=== PATIENT | male | born 1985 | race Caucasian/White ===

== ENCOUNTER 2017-03-09 16:30 | Emergency (ER) | payer MEDICAID ==
[~2017-03-09] VITALS: Ht 182.9 cm; Wt 81.6 kg
[~2017-03-09 16:30] MED LIST: NAPROSYN 500MG500 MG PO; NOMEDS *; ULTRACET 325 MG1 TAB PO
[2017-03-09] MEDS ORDERED: BACTRIM DS 8001 TA1 PO (17:03)
[2017-03-09] MEDS ORDERED: TYLENOL WITH CO1 TA1 PO (17:04)
--- NOTE | 2017-03-09 17:04 | Emergency Room Report ---
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 N Clinical Suspician of Infection? N Mental Status: 1 - Regular (Normal Baseline) Sepsis Risk:Low Sepsis Risk Have you (or family members/close friends) recently traveled outside the [place]? N If Yes, where/when: Have you had exposure to infectious disease within the past month? TB? Other? Specify: Comment The patient has a boil on the LEFT side of his neck for a couple of days. He had a lump there before the boil developed. He has a history of boils in the past on his tailbone that have had to be lanced. No fever. He says it has given him a headache. ALLERGIES Coded Allergies: tramadol (Mild, 03/09/17) Uncoded Allergies: PCN (Mild, 03/09/17) Home Medications Reported Medications No Home Medications (NO HOME MEDICATIONS) 1 X * ONCE History Medical History General Angina: No [place]: No Hypertension? No Hyperlipidemia? No COPD? No Asthma? No CVA? No Seizures? No Diabetes? No GB Disease: No MRSA? No TB? No Cancer? No Immunization Hx Ped.Immunizations UTD Yes DT/Tetanus 1-4 YRS Surgical Hx Previous Surgery?N Social History Smoking Hx Smoker: Never Smoker Tobacco: Yes Type Cigarettes Are you/the child exposed to second-hand smoke: Yes Alcohol Alcohol: No Review of Systems All Other Systems Reviewed and Negative Constitutional denies fever Skin see HPI Psychiatric/Neurological headache Physical Exam Vital Signs Vital Signs Date Time Temp Pulse Resp B/P Pulse O2 O2 Flow FiO2 Ox Delivery Rate 03/09 1758 98.3 88 18 146/72 98 03/09 1643 98.3 88 18 146/72 98 General Appearance no apparent distress Neck 3 cm diameter fluctuant abscess LEFT lateral neck with mild overlying cellulitis. Respiratory Status No: respiratory distress. Cardiovascular regular rate/rhythm Neurologic alert, no motor/sensory deficits Medical Decision Making LABS/Meds/Orders Pt receiving controlled substance in ED? No Results/Orders Current Medication Orders Sig/Xin Start time Last Medication Dose Route Stop Time Status Admin Ibuprofen 0 .STK-MED ONE 03/09 1752 DC PO Ibuprofen 800 MG ONCE ONE 03/09 1745 DC 03/09 PO 03/09 1746 1758 Lidocaine HCl 0 .STK-MED ONE 03/09 1639 DC .ROUTE Lidocaine HCl 0 .STK-MED ONE 03/09 1639 DC .ROUTE Orders Procedure Date/time Status CULTURE, WOUND 03/09 1700 Active Procedures Incision and Drainage Progress Incision/Drainage Performed by: JAH KIM Consent: Verbal consent obtained. Risks and benefits: risks, benefits and alternatives were discussed Consent given by: patient Patient identity confirmed: verbally with patient Type: abscess Location: * Anesthesia: local infiltration Local anesthetic: lidocaine 1% Patient sedated: no Scalpel size: 11 Incision type: single straight Complexity: simple Drainage: purulent and sebum Drainage amount: moderate Wound treatment: probed for loculationsl. wound left open Packin/4 inch Culture: yes Patient tolerance: Patient tolerated the procedure well with no immediate complications Departure Departure Disposition DC Home or Self Care(routine) Clinical Impression Primary Impression: Infected sebaceous cyst Condition STABLE Patient Instructions DI for Incision and Drainage of a Skin Abscess Additional Instructions Additional instructions for ABSCESS: Day one and two: Remove the bandage and shower the area, leaving the packing in place. Gently blot dry. Apply a bandage. Day three: Follow-up with primary care physician, clinic, or Urgent Treatment Center for packing removal and culture results. Return to the emergency department if increasing pain, swelling, redness, redstreaks or fever greater than 101 degrees. Prescriptions Current Visit Scripts SULFAMETHOXAZOLE W/TRIMETHOPRI (Bactrim Ds Tab) 1 TAB PO BID #20 TAB ACETAMINOPHEN WITH CODEINE (Tylenol With Codeine #3 Tablet) 1-2 TAB PO Q4HP PRN pain #8 TAB ED Critical Care Critical Care No at 1945
[2017-03-09 17:58] VITALS: BP 146/72
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
--- OUTSIDE RECORDS SUMMARY | 2017-03-09 18:21 | External Medical Summary Rpt | CCD ---
Author Author , STAN PIERCE Address Unknown Phone [email or web address] Immunization Name Date Rout CVX Reac Dose Comm Prov Is Faci e tion ent ider Refu lity Give sed n Hep 05-0 8 999 Hist H112 No H112 B, 9-20 oric ped/ 00 al adol Info rmat ion - Sour ce Unsp ecif ied Hep 01-0 8 999 Hist H112 No H112 B, 4-20 oric ped/ 00 al adol Info rmat ion - Sour ce Unsp ecif ied Hep 11-2 8 999 Hist H112 No H112 B, 9- oric ped/ 99 al adol Info rmat ion - Sour ce Unsp ecif ied Td 11-1 9 999 Hist H112 No H112 (nitin 7-19 oric lt), 99 al Info adso rmat rbed ion - Sour ce Unsp ecif ied MMR 04-0 3 999 Hist H112 No H112 9- oric 99 al Info rmat ion - Sour ce Unsp ecif ied
--- OUTSIDE RECORDS SUMMARY | 2017-03-09 18:21 | External Medical Summary Rpt | CCD ---
Author Author , STAN PIERCE Address Unknown Phone [email or web address] Immunization Name Date Rout CVX Reac Dose [...]
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
== END 2017-03-09 17:59 | disposition home or self-care (01) ==
LOC: ER 16:30
PROC: 0H94XZZ Drainage of Neck Skin, External Approach (ICD-10-PCS; principal; 2017-03-09)
DX: L02.12 Furuncle of neck (principal)

== ENCOUNTER → 2017-03-11 | Outpatient (CLI) | payer MEDICAID ==
[~2017-03-11] MED LIST changes: +BACTRIM DS 8001 TA1 PO; +TYLENOL WITH CO1 TA1 PO
== END ==
LOC: UTC.OUT 14:29
DX: L02.12 Furuncle of neck (principal)